=== PATIENT | male | born 1970 | race Hispanic/Latino ===

== ENCOUNTER 2017-03-14 09:50 | Day surgery (SDC) | payer MEDICAID ==
[2017-03-07 14:15] VITALS: BMI 28.4
[2017-03-14] MEDS ORDERED: Lidocaine 1% Inj (20ml) ONE (11:11)
[2017-03-14] MEDS ORDERED: Bupivacaine-Epi 0.25%-1:200,000 PF Inj ONE (11:11)
--- NOTE | 2017-03-14 12:31 | PCM.SURG1 ---
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
[2017-03-14 12:48] VITALS: BP 125/75; PULSE 66; RESP 18; TEMP 98; O2SAT 100
--- NOTE | 2017-03-23 14:02 | PCM.OP ---
Operative Report - Operative Report Date of Surgery/Procedure: 03/15/17 Time of Surgery/Procedure: 14:00 Surgeon: Guillaume Salinas MD. Computer Tester: Skylar Melton MD. Anesthesia/Sedation: local anesthesia with monitored anesthesia Pre-Operative Diagnosis: Kaposi's sarcoma of abdominal wall, approximately 2 cm x 1 cm. Post-Operative Diagnosis: Kaposi's sarcoma of abdominal wall, approximately 2 cm x 1 cm. Indication for Surgery: Kaposi's sarcoma of abdominal wall, approximately 2 cm x 1 cm. Operative Findings: Patient had a 2 cm x 1 cm Kaposi's sarcoma of the abdominal wall, which was excised for biopsy by pathology. Procedure/Operation Description: 1. Wide local excision of abdominal wall Kaposi 's sarcoma. 2. Layered closure of the wound, complex, 3 cm x 2 cm. This 46 year-old male was diagnosed with Kaposi's sarcoma of abdominal wall. Patient was consented for the wide local excision. Brought to OR, placed supine on operating table. After prepping and draping the left upper abdomen, the elliptical 4 cm x 3 cm incision was made. After incising the skin and tissue, the dissection was carried down to underlying fascia and the wide local excision of the Kaposi's sarcoma was done. The specimen was marked medially with sharp suture and superiorly with two long sutures and sent to pathology. The wound was irrigated and the wound was closed in multiple layers. The subcutaneous and the fascia with 2-0 vicryl and another layer of subcutaneous with 2-0 vicryl and skin with 4-0 monocryl. Dry, sterile dressing was applied. Patient tolerated procedure well. The count of instruments was correct. There were no apparent complications. Estimated Blood Loss: 10 cc. Drains: None. Complications: None. Specimen: The Kaposi's sarcoma of abdominal wall was sent to pathology Discharge & Condition: stable
== END 2017-03-14 12:49 | disposition home or self-care (01) ==
LOC: C.SDS 09:50
PROVIDERS: ATTEND Surgery Surgical Critical Care
DX: C46.9 Kaposi's sarcoma, unspecified (principal); E78.00 Pure hypercholesterolemia, unspecified